=== PATIENT | female | born 1990 | race Caucasian/White ===

== ENCOUNTER 2020-01-09 13:26 | Inpatient (IN) ==
[2020-01-09 21:01] LABS: Basophils # (auto) 0.02 K/uL (0-0.2); Basophils % (auto) 0.1 %; Eosinophils # (auto) 0.23 K/uL (0-0.5); Eosinophils % (auto) 1.5 %; Hematocrit (blood only) 35.5 % (37-47); Hemoglobin 11.5 g/dL (12.0-16.0); Immature Granulocytes # (auto) 0.09 K/uL (0.00-0.02); Immature Granulocytes % (auto) 0.6 %; Lymphocytes # (auto) 3.43 K/uL (1.2-3.4); Lymphocytes % (auto) 22.4 %; Mean Corpuscular Hemoglobin 24.4 pg (25-34); Mean Corpuscular Volume 75.4 fL (80-100); Mean Platelet Volume 8.8 fL (7.4-10.4); Monocytes % (auto) 7.2 %; Neutrophils # (auto) 10.45 K/uL (1.4-6.5); Neutrophils % (auto) 68.2 %; Platelet Count 316 K/uL (130-400); RDW Coefficient of Variation 14.5 % (11.5-14.5); RDW Standard Deviation 39.9 fL (36.4-46.3); Red Blood Count 4.71 M/uL (4.2-5.4); White Blood Count 15.32 K/uL (4.8-10.8)
[2020-01-09 21:04] LABS: Mean Corpuscular Hgb Conc 32.4 g/dL (32-36)
[2020-01-09] MEDS ORDERED: LACTATED RINGER'S 1,000 ML IV PRN (21:33)
[2020-01-09] MEDS ORDERED: PENICILLIN G POTASSIUM 6 MU in DEXTROSE 5% 250 ML IV STA (21:33)
[2020-01-09] MEDS ORDERED: OXYTOCIN 30 UNITS/500 ML BAG IV PRN (21:33)
[2020-01-09] MEDS ORDERED: BUTORPHANOL TARTRATE 1 MG/ML VIAL IV PRN (21:53)
--- NOTE | 2020-01-09 21:53 | Obstetrical Progress Note ---
Date of Service January 09, 2020 Assessment & Plan Admission and Anticipated Discharge Date Admission Date: January 09, 2020 Physical Exam Physical Exam: Admit Note 29 F [id number] at 40.5 weeks with previous now here for IOL for post- dates. Cervix 1/50/-3/vertex/posterior/firm. GBS is positive. FHT Cat 1. Galloway bulb with 35 ml. saline placed into cervix for cervical ripening. EFW 7.5 lbs. Will start antibiotics when in labor. Results & Data ([facility]) Vital Signs (Past 12 Hours) Vital Signs Temp Pulse Resp BP 01/09/20 21:00 89 132/68 01/09/20 20:55 36.7 C 18
[2020-01-10] MEDS: ACETAMINOPHEN 325 MG TAB PO PRN ×2 (07:40→20:10)
[2020-01-10] MEDS ORDERED: OXYTOCIN 30 UNITS/500 ML BAG IV PRN (08:07)
--- NOTE | 2020-01-10 08:15 | History & Physical Report ---
Date of Service January 10, 2020 Assessment & Plan (1) Elective induction of labor planned: 29 yo at 40.6 wks IOL for postdates TOLAC s/p do Cervix favorable Discussed options with low dose pitocin which will increase the risk of uterine rupture AROM when able Elective RCS She decided on pitocin and TOLAC All questions were answered (2) History of delivery: History of Present Illness Primary Care Provider: NO PCP Patient is seen and examined She is known to me from office 29 yo at 40.[address] Castillo last night for IOL/ TOLAC/ for postdates Received do but it came out No ctxs/ LOF/VB +FM's Denies medical problems/ smoking/ alcohol or D use Denies any h/o STD's Allergies Allergy/AdvReac Type Severity Reaction Status Date / Time No Known Allergies Allergy Unverified 01/09/20 20:45 Home Medications Home Medications Medication Instructions Recorded Confirmed Type bupropion HCl [Wellbutrin SR] 200 mg PO DAILY 01/09/20 01/09/20 History pediatric multivitamin no.76 1 tab PO DAILY 01/09/20 01/09/20 History [Gummy Dinos] Patient History Medical History Anxiety and depression PCOS (polycystic ovarian syndrome) PTSD (post-traumatic stress disorder) pt states takes Wellbutrin and did therapy Surgical History Bone cyst removal in left hip February 2019 [place] teeth extracted 2012 Social History Preferred Language: Luxembourgish Communication Ability: Effective Commutator Repairer Required: No Beliefs That Will Affect Care: None marital status: Current Living Situation: Spouse and Family Current Living Situation Comment: and 5 year old son Other Information That Helps Us Care for You: No Feels Safe at Home: Yes Safety Concerns: Feels Safe At This Time Smoking Status: Never smoker Second Hand Exposure: No ; Hx Alcohol Use: No Hx Substance Use: No OB History Primary Csection in 2015 for NT FHR Review of Systems All systems reviewed & are unremarkable except as noted in HPI & below Physical Exam Constitutional: WD/WN, vitals as above well developed and well nourished Comfortble, NAD Gastrointestinal (Abdomen): Abd: soft, NT, gravid Bed side US: vertex, normal lower uterine segment, placenta anterior, EFW 3700 gr. Genitourinary: normal external appearance Cervix: 4 cm/ 70%/ -3, posterior Results & Data Vital Signs (Past 12 Hours) Vital Signs Temp Pulse Resp BP 01/10/20 07:20 36.5 C 20 01/10/20 07:16 81 131/78 01/10/20 06:53 88 125/77 01/10/20 06:35 36.6 C 16 01/10/20 05:53 81 122/64 01/10/20 04:55 16 01/10/20 04:53 75 128/76 01/10/20 03:53 77 112/56 L 01/10/20 03:42 18 01/10/20 03:15 36.7 C 18 01/10/20 02:53 99 H 132/81 01/10/20 01:53 98 H 110/55 L 01/10/20 01:25 36.7 C 16 01/10/20 00:53 114 H 122/69 01/09/20 23:53 94 H 124/71 01/09/20 23:02 36.7 C 88 18 125/71 01/09/20 21:00 89 132/68 01/09/20 20:55 36.7 C 18 Laboratory Results Lab Results 01/09/20 01/09/20 Range/Units 20:53 20:53 WBC 15.32 H (4.8-10.8) K/uL RBC 4.71 (4.2-5.4) M/uL Hgb 11.5 L (12.0-16.0) g/dL Hct 35.5 L (37-47) % MCV 75.4 L (80-100) fL MCH 24.4 L (25-34) pg MCHC 32.4 (32-36) g/dL RDW Std Deviation 39.9 (36.4-46.3) fL RDW Coeff of Praveen 14.5 (11.5-14.5) % Plt Count 316 (130-400) K/uL MPV 8.8 (7.4-10.4) fL Immature Gran % (Auto) 0.6 % Neut % (Auto) 68.2 % Lymph % (Auto) 22.4 % [place] % (Auto) 7.2 % Eos % (Auto) 1.5 % Baso % (Auto) 0.1 % Immature Gran # (Auto) 0.09 H (0.00-0.02) K/uL Neut # (Auto) 10.45 H (1.4-6.5) K/uL Lymph # (Auto) 3.43 H (1.2-3.4) K/uL [place] # (Auto) 1.10 H (0.11-0.59) K/uL Eos # (Auto) 0.23 (0-0.5) K/uL Baso # (Auto) 0.02 (0-0.2) K/uL Blood Type O Positive Antibody Screen NEGATIVE Code Status & VTE Plan VTE Prophylaxis Plan VTE Prophylaxis will be ordered: No Monitoring External Monitor 130's categ I Tocodynamometer No ctxs
[2020-01-10] MEDS: LACTATED RINGER'S 1,000 ML IV SCH ×2 (08:38→08:54)
[2020-01-10] MEDS: PENICILLIN G POTASSIUM 3 MU in DEXTROSE 5% 100 ML IV PRN ×3 (12:56→21:17)
[2020-01-10] MEDS ORDERED: BUPIVACAINE 0.25% 30 ML VIAL ONE (15:09)
[2020-01-10] MEDS ORDERED: fentaNYL citrate 100 MCG/2 ML VIAL ONE (15:09)
[2020-01-10] MEDS ORDERED: ePHEDrine sulfate 50 MG/ML AMP ONE (15:09)
[2020-01-10] MEDS ORDERED: fentaNYL 2MCG/ML ROPIV 1.25MG/ML 100 ML BAG EPI ONE (15:10)
[2020-01-10] MEDS ORDERED: DiphenhydrAMINE HCL 50 MG/ML VIAL IV PRN (16:38)
[2020-01-10] MEDS ORDERED: NALBUPHINE HCL INJ 10 MG/ML AMP IV PRN (16:38)
[2020-01-10] MEDS ORDERED: fentaNYL 2MCG/ML ROPIV 1.25MG/ML 100 ML BAG EPI PRN (16:38)
[2020-01-10] MEDS ORDERED: NALOXONE HCL 0.4 MG/1 ML VIAL/CARP IV PRN (16:38)
[2020-01-10] MEDS ORDERED: ONDANSETRON INJ 2 MG/ML 2 ML VIAL IV PRN (16:38)
[2020-01-10] MEDS ORDERED: ePHEDrine sulfate 50 MG/ML AMP IV PRN (16:38)
[2020-01-10] MEDS ORDERED: NALOXONE HCL 1 MG in SODIUM CHLORIDE 0.9% 1000ML 1,000 ML IV PRN (16:38)
--- NOTE | 2020-01-10 16:48 | Anesthesiology Consultation ---
Date of Service January 10, 2020 Assessment & Plan Chart Review Chart Review: Patient NOT seen in Pre Admission Testing and Acceptable Risk for Labor Epidural Consults Requested none ASA ASA2 Proposed Anesthesia Anesthesia Type: Labor Epidural and CSE Risk / Benefits Reviewed With: PT / POA / Parent / Guardian, Accepts Plan and Informed Consent Obtained History Height/Weight Height: 5 ft 8 in Weight: 107.501 kg Allergies Allergy/AdvReac Type Severity Reaction Status Date / Time No Known Allergies Allergy Unverified 01/09/20 20:45 Medications Home Medications Medication Instructions Recorded Confirmed Last Taken bupropion HCl [Wellbutrin SR] 200 mg PO DAILY 01/09/20 01/09/20 01/08/20 21:00 pediatric multivitamin no.76 1 tab PO DAILY 01/09/20 01/09/20 01/08/20 21:00 [Gummy Dinos] Active Medications Generic Name Dose Route Start Last Admin Trade Name Freq PRN Reason Stop Dose Admin Acetaminophen 650 mg 01/10/20 07:31 01/10/20 07:40 Tylenol PO 02/09/20 07:30 650 mg Q4H PRN Administration Headache Lactated Ringer's 1,000 mls @ 125 mls/hr 01/09/20 20:45 01/10/20 15:20 Lr IV 02/08/20 20:44 999 mls/hr .Q8H MARIA G Infusion Penicillin G Potassium 3 mu/ 106 mls @ 100 mls/hr 01/09/20 21:33 01/10/20 12:56 Dextrose IV 01/19/20 21:32 100 mls/hr Q4H PRN Administration Give until delivery Oxytocin 30 units in 500 mls @ 7 mls/hr 01/10/20 08:07 01/10/20 15:00 Pitocin IV 01/12/20 08:06 0.42 units/hr .Q24H PRN 7 mls/hr labor Titration Protocol 0.42 UNITS/HR NPO Date Last Intake of Fluids: 01/10/20 Time Last Intake of Fluids: 16:00 Date Last Intake of Solids: 01/09/20 Time Last Intake of Solids: 19:00 Past Medical History Medical History Anxiety and depression PCOS (polycystic ovarian syndrome) PTSD (post-traumatic stress disorder) pt states takes Wellbutrin and did therapy Exercise / Class Metabolic Activity II 4-5 Yardwork/Stairs/Walk up hill Past Surgical History Surgical History Bone cyst removal in left hip February 2019 [place] teeth extracted 2012 Past Anesthesia History No Hx of Anesthesia Complications and No Family Hx of Anesthesia Complications History of PONV No Hx of PONV and No Hx of Motion Sickness Social History Smoking Status: Never smoker Hx Alcohol Use: No Hx Substance Use: No substance use type: does not use Review of Systems no chest pain or sob Physical Exam Vital Signs Last Vital Signs Temp 36.8 C 01/10/20 15:05 Pulse 114 H 01/10/20 16:43 Resp 18 01/10/20 15:05 BP 112/68 01/10/20 13:06 Pulse Ox 99 01/10/20 16:43 ENMT Mouth: no TMJ abnormality Thyromental Distance: > or= 3.5 Finger Breadths Mallampati Class: II Neck normal visual inspection Respiratory normal respiratory effort Auscultation: lungs clear to auscultation bilaterally Cardiovascular Rate/Rhythm: regular rate and regular rhythm Musculoskeletal Spine: normal cervical ROM Neurologic moves all extremities Psychiatric Orientation: alert and oriented x 3 Testing Laboratory Results 01/09/20 20:53 Blood Type O Positive 01/09/20 20:53 Antibody Screen NEGATIVE 01/09/20 20:53
--- NOTE | 2020-01-10 17:42 | Obstetrical Progress Note ---
Date of Service January 10, 2020 Assessment & Plan Admission and Anticipated Discharge Date Admission Date: January 09, 2020 Subjective Patient is reevaluated She is comfortable, received epidural for pain FHR had been categ I Pitocin is just increased to 10 miu/min mild ctxs q 3-4 min VE; 5/ 60%/ -3, engaged, tight bag, AROM'ed clear fluid Galloway catheter is inserted Continue to monitor closely Results & Data ([facility]) Vital Signs (Past 12 Hours) Vital Signs Temp Pulse Resp BP Pulse Ox 01/10/20 17:38 95 H 99 01/10/20 17:33 92 H 99 01/10/20 17:28 88 99 01/10/20 17:23 89 120/62 96 01/10/20 17:18 93 H 99 01/10/20 17:13 84 99 01/10/20 17:08 89 135/73 99 01/10/20 17:06 85 129/75 01/10/20 17:03 93 H 124/64 98 01/10/20 17:02 100 H 136/65 01/10/20 16:59 131 H 173/89 H 01/10/20 16:58 108 H 100 01/10/20 16:57 131 H 146/94 H 01/10/20 16:53 104 H 100 01/10/20 16:50 93 H 141/84 H 01/10/20 16:49 94 H 137/84 01/10/20 16:48 112 H 100 01/10/20 16:43 114 H 99 01/10/20 16:38 95 H 98 01/10/20 15:05 36.8 C 18 01/10/20 13:06 36.9 C 85 20 112/68 01/10/20 11:45 77 107/57 L 01/10/20 11:12 36.4 C L 18 01/10/20 11:11 81 121/60 01/10/20 09:29 75 111/61 01/10/20 08:49 81 128/76 01/10/20 07:20 36.5 C 20 01/10/20 07:16 81 131/78 01/10/20 06:53 88 125/77 01/10/20 06:35 36.6 C 16 01/10/20 05:53 81 122/64
--- NOTE | 2020-01-10 20:50 | Obstetrical Progress Note ---
Date of Service January 10, 2020 Assessment & Plan Admission and Anticipated Discharge Date Admission Date: January 09, 2020 Subjective Patient is reevaluated She feels pressure VE; 5-6/ 70%/ -2, LOP FHR had been categ I Pitocin is just increased to 12 miu/min ctxs q 3-4 min Continue to monitor closely Results & Data ([facility]) Vital Signs (Past 12 Hours) Vital Signs Temp Pulse Resp BP Pulse Ox 20 20:43 88 97 20 20:38 108 H 134/90 98 0220/20 20:33 98 H 98 01/10/20 20:28 101 H 97 0220/20 20:24 96 H 134/85 0220/20 20:23 84 97 20/20 20:18 97 H 98 0220/20 20:13 106 H 98 0220/20 20:08 89 137/83 98 0220/20 20:03 96 H 98 0220/20 19:58 104 H 98 0220/20 19:53 84 145/82 H 97 0220/20 19:48 95 H 97 0220/20 19:43 78 97 0220/20 19:39 80 125/72 0220/20 19:38 89 98 0220/20 19:33 98 H 99 20/20 19:28 88 97 0220/20 19:23 86 126/76 98 0220/20 19:18 94 H 98 0220/20 19:13 87 97 0220/20 19:08 89 122/72 97 0220/20 19:03 94 H 97 0220/20 18:58 86 97 0220/20 18:53 93 H 120/72 97 0220/20 18:48 90 97 0220/20 18:43 98 H 98 0220/20 18:39 88 113/65 0220/20 18:38 87 97 0220/20 18:33 94 H 97 0220/20 18:28 96 H 97 0220/20 18:23 84 125/74 96 0220/20 18:18 93 H 97 0220/20 18:13 86 96 0220/20 18:10 100 H 122/77 0220/20 18:08 90 98 0220/20 18:03 91 H 98 01/10/20 17:58 87 98 01/10/20 17:54 93 H 139/87 01/10/20 17:53 87 98 01/10/20 17:48 91 H 98 01/10/20 17:43 91 H 97 01/10/20 17:39 88 135/92 01/10/20 17:38 95 H 99 01/10/20 17:33 92 H 99 01/10/20 17:28 88 99 01/10/20 17:23 89 120/62 96 01/10/20 17:18 93 H 99 01/10/20 17:13 84 99 01/10/20 17:08 89 135/73 99 01/10/20 17:06 85 129/75 01/10/20 17:03 93 H 124/64 98 01/10/20 17:02 100 H 136/65 01/10/20 16:59 131 H 173/89 H 01/10/20 16:58 108 H 100 01/10/20 16:57 131 H 146/94 H 01/10/20 16:53 104 H 100 01/10/20 16:50 93 H 141/84 H 01/10/20 16:49 94 H 137/84 01/10/20 16:48 112 H 100 01/10/20 16:43 114 H 99 01/10/20 16:38 95 H 98 01/10/20 15:05 36.8 C 18 01/10/20 13:06 36.9 C 85 20 112/68 01/10/20 11:45 77 107/57 L 01/10/20 11:12 36.4 C L 18 01/10/20 11:11 81 121/60 01/10/20 09:29 75 111/61 01/10/20 08:49 81 128/76
[2020-01-10] MEDS ORDERED: Nursing to Pharmacy Communication ONE (21:46)
[2020-01-11] MEDS ORDERED: SUPERCREAM 0.870% 15 GM JAR EXT PRN (00:08)
[2020-01-11] MEDS ORDERED: MEASLES, MUMPS & RUBELLA VIRUS VIAL SQ ONE (00:08)
[2020-01-11] MEDS ORDERED: DIPHTHERIA/TETANUS/PERTUSSIS 0.5 ML SYR/VIAL IM ONE (00:08)
[2020-01-11] MEDS ORDERED: OXYCODONE/ACETAMINOPHEN 5mg/325mg TAB PO PRN (00:08)
[2020-01-11] MEDS ORDERED: BENZOCAINE 20% AER SPR 82.5 GM CAN EXT PRN (00:08)
[2020-01-11] MEDS ORDERED: OXYTOCIN 30 UNITS/500 ML BAG IV PRN (00:08)
[2020-01-11] MEDS ORDERED: bisacodyL 10 MG SUPP PR PRN (00:08)
[2020-01-11] MEDS ORDERED: HYDROCORTISONE ACETATE 25 MG SUPP PR PRN (00:08)
[2020-01-11] MEDS ORDERED: ACETAMINOPHEN 325 MG TAB PO PRN (00:08)
--- NOTE | 2020-01-11 01:26 | Delivery Summary ---
DATE OF OPERATION: 01/10/2020 TIME: 2319 hours. DETAILS OF DELIVERY: The patient was found to be fully dilated and desired to push. She pushed for about 50 minutes and delivered the head without difficulty. Shoulders were delivered with minimal traction. There was a nuchal cord around the neck x1 which was reduced and baby was handed off to the mother where mouth and nose were suctioned. Cord was clamped x2 and cut. It was 3-vessel cord. Cord blood was obtained. Vagina and perineum were checked for lacerations. There was a second-degree laceration on the posterior vagina on the right and left sides. Those were repaired with 2-0 Vicryl in a running locked fashion, skin in a subcuticular fashion, and then there was a first-degree vaginal mucosal laceration inferior to the urethra. A Galloway catheter was inserted into the urethra and this was repaired with 3-0 Vicryl on SH needle with [id number] stitches x2 and it was hemostatic and the catheter was removed. Placenta was found to be in the vagina, delivered spontaneously as intact and complete. Uterus was explored, found to be empty. Lower segment was cleared of all clots and debris. Fundus was firm. EBL was 200 mL. Mom and baby tolerated the procedure well. Sponge, lap, needle count was correct x2. Baby was a viable female infant, Apgars 8/9, weight is 3745 gr. No complications happened and I was present during whole procedure. She received penicillin during labor due to GBS positive status. I attest to the content of the Intraoperative Record and any orders documented therein. Any exceptions are noted below. JEANE
[2020-01-11] MEDS: IBUPROFEN 600 MG TAB PO PRN ×5 (01:58→22:44)
--- NOTE | 2020-01-11 08:03 | Anesthesia Procedure Note ---
Date of Service January 11, 2020 Anesthesia Post Epidural Note Vital Signs Vital Signs: Temp Pulse Resp BP Pulse Ox 36.3 C L 91 H 16 118/75 98 01/11/20 04:15 01/11/20 04:15 01/11/20 04:15 01/11/20 04:15 01/11/20 04:15 Pain Intensity Back: Pain Intensity: 4 Notes Mental Status: alert / awake / arousable and participated in evaluation Patient Amnestic to Procedure: Yes Nausea / Vomiting: adequately controlled Pain: adequately controlled Airway Patency, RR, SpO2: stable & adequate BP & HR: stable & adequate Hydration State: stable & adequate Anesthetic Complications: no major complications apparent and Pt Satisfied with anesthetic care
[2020-01-11] MEDS: DOCUSATE SODIUM 100 MG CAP PO SCH ×2 (08:17→21:17)
[2020-01-11] MEDS: FERROUS SULFATE 325 MG TAB PO SCH (08:17)
--- NOTE | 2020-01-11 08:55 | Obstetrical Progress Note ---
Date of Service January 11, 2020 Assessment & Plan Admission and Anticipated Discharge Date Admission Date: January 09, 2020 Subjective doing well out of bed tolerating diet Physical Exam Constitutional: WD/WN, vitals as above comfortable abdomen soft non- tender fundus firm tent d/c in AM Results & Data ([facility]) Vital Signs (Past 12 Hours) Vital Signs Temp Pulse Pulse Resp BP BP Pulse Ox 01/11/20 08:00 36.7 C 98 H 20 112/73 99 01/11/20 04:15 36.3 C L 91 H 16 118/75 98 01/11/20 02:00 36.6 C 104 H 16 109/73 98 01/11/20 01:45 36.9 C 126 H 18 119/73 01/11/20 01:30 125 H 117/65 01/11/20 01:15 117 H 126/70 01/11/20 01:00 117 H 16 118/75 01/11/20 00:45 104 H 16 124/72 01/11/20 00:30 110 H 18 120/74 01/11/20 00:15 113 H 16 128/83 01/11/20 00:00 111 H 18 145/86 H 01/10/20 23:44 37.0 C 90 18 143/79 H 01/10/20 23:43 95 H 98 01/10/20 23:38 98 H 98 01/10/20 23:33 94 H 98 01/10/20 23:28 102 H 97 01/10/20 23:23 114 H 97 01/10/20 23:18 145 H 20 99 01/10/20 23:13 88 100 01/10/20 23:12 36.7 C 24 01/10/20 23:11 94 H 132/75 01/10/20 23:08 129 H 98 01/10/20 23:03 155 H 100 01/10/20 22:58 114 H 98 01/10/20 22:53 110 H 128/83 98 01/10/20 22:48 107 H 98 01/10/20 22:43 141 H 100 01/10/20 22:42 100 H 143/83 H 01/10/20 22:38 111 H 100 01/10/20 22:33 113 H 99 01/10/20 22:28 115 H 98 01/10/20 22:23 99 H 137/73 99 01/1020 22:18 96 H 145/73 H 98 20/20 22:13 105 H 99 0220 22:09 129 H 203/115 H 20 22:08 103 H 98 20 22:03 102 H 98 20 21:58 91 H 99 20 21:53 102 H 141/82 H 98 01/10/20 21:48 93 H 98 20 21:43 93 H 98 01/10/20 21:38 95 H 136/79 97 2020 21:33 103 H 97 022020 21:28 79 97 022020 21:24 86 133/70 022020 21:23 80 96 022020 21:18 85 96 022020 21:13 81 96 022020 21:09 81 132/70 022020 21:08 74 96 022020 21:03 94 H 97 20 20:58 89 96
[2020-01-11] MEDS: PRENATAL VITAMIN 1 TAB PO SCH (16:50)
[2020-01-11] MEDS: ACETAMINOPHEN 325 MG TAB PO PRN (19:52)
[2020-01-12] MEDS: IBUPROFEN 600 MG TAB PO PRN ×2 (02:33→08:06)
[2020-01-12 06:59] LABS: Hematocrit (blood only) 29.3 % (37-47); Hemoglobin 9.5 g/dL (12.0-16.0); Mean Corpuscular Hemoglobin 24.8 pg (25-34); Mean Corpuscular Hgb Conc 32.4 g/dL (32-36); Mean Corpuscular Volume 76.5 fL (80-100); Mean Platelet Volume 8.8 fL (7.4-10.4); Platelet Count 261 K/uL (130-400); RDW Coefficient of Variation 14.9 % (11.5-14.5); RDW Standard Deviation 42.2 fL (36.4-46.3); Red Blood Count 3.83 M/uL (4.2-5.4); White Blood Count 11.06 K/uL (4.8-10.8)
[2020-01-12] MEDS: DOCUSATE SODIUM 100 MG CAP PO SCH (08:06)
[2020-01-12] MEDS: FERROUS SULFATE 325 MG TAB PO SCH (08:06)
[2020-01-12] MEDS: PRENATAL VITAMIN 1 TAB PO SCH (08:09)
--- NOTE | 2020-01-12 10:30 | Obstetrical Progress Note ---
Date of Service January 12, 2020 Assessment & Plan Admission and Anticipated Discharge Date Admission Date: January 09, 2020 Physical Exam Physical Exam: abdomen soft and non tender no calf tenderness ambulating well vaginal bleeding scant hgb 9.6 Results & Data ([facility]) Vital Signs (Past 12 Hours) Vital Signs Temp Pulse Resp BP Pulse Ox 01/11/20 23:15 36.3 C L 94 H 16 118/80 98
[2020-01-12] MEDS ORDERED: bisacodyL 5 MG TABEC PO SCH (20:00)
== END 2020-01-12 11:40 | disposition home or self-care (01) | DRG 807 ==
LOC: 4S1 20:26 → 4S2 01-11 02:00